=== PATIENT | male | born 1980 | race Caucasian/White ===

== ENCOUNTER 2022-12-04 11:51 | Day surgery (SDC) | payer BC, SELFPAY ==
[2022-12-04 11:56] VITALS: BP 141/81; PULSE 91; RESP 18; TEMP 37; O2SAT 99
--- NOTE | 2022-12-04 13:00 | DI.RAD_ITS ---
Exam(s) XR KNEE RT 3V AP,LAT,EDWIN EXAM: XR KNEE RT 3V AP,LAT,EDWIN CLINICAL HISTORY: laceration medial knee. TECHNIQUE: 2D digital imaging was performed. COMPARISON: No exams were available for comparison FINDINGS: 3 views There is no evidence of acute fracture. Small amount of increased joint fluid. No degenerative wilkes ges. No osseous lesions. Bone density normal. IMPRESSION: No acute osseous findings. Small joint effusion noted. DATA REPOSITORY: RADIATION DOSE DELIVERED:
--- NOTE | 2022-12-04 13:41 | ED.GENADUL_ITS ---
Discharge Plan Disposition Patient Disposition: Other Disposition Not Listed Other Facility: OR Condition: Stable Discharge Details Clinical Impression: Deep laceration of knee Primary Care Provider: Ana,Local ED Provider: Kell Badillo Discharge Data Discharge Date/Time-TO BE ENTERED AT DEPARTURE: 12/04/22 14:06 Medical Decision Making This 42-year-old gentleman presents with laceration to the medial aspect of right knee which is lacerated on a ski Tetanus is updated Neurovascularly intact Injected with approximately 10 cc of 2% lidocaine with epinephrine and concern for ligamentous versus tendon laceration with relatively deep wound, no obvious evidence of joint involvement Discussed with Dr. Garcia who will obtain consent and likely take patient to the OR for further assessment No laxity noted on exam Medical Records Medical records reviewed: Yes I reviewed the patient's medical records. Lab Data Lab results reviewed: Yes I reviewed the patient's lab results. HPI General Date/Time Provider Initiated Documentation: 12/04/22 12:26 . HPI Narrative: This 42-year-old gentleman presents with report of laceration while skiing today. He caught the corner of his ski on his inner knee. He denies any additional injuries. He denies any history of anticoagulation. He actually states he was able to ski [place] the [place] after the injury Related Data Home Medications Medication Instructions Recorded Confirmed hydrocodone 5 mg-acetaminophen 325 1 tab PO Q6H PRN pain #6 tabs 12/04/22 mg tablet ibuprofen 600 mg tablet 600 mg PO TID PRN pain #30 tabs 12/04/22 lisinopril 20 mg tablet 20 mg PO DAILY 12/04/22 12/04/22 pantoprazole 40 mg tablet,delayed 40 mg PO DAILY 12/04/22 12/04/22 release cephalexin 500 mg capsule 500 mg PO TID #6 caps 12/05/22 Previous Rx's Medication Instructions Recorded hydrocodone 5 mg-acetaminophen 325 1 tab PO Q6H PRN pain #6 tabs 12/04/22 mg tablet ibuprofen 600 mg tablet 600 mg PO TID PRN pain #30 tabs 12/04/22 cephalexin 500 mg capsule 500 mg PO TID #6 caps 12/05/22 Allergies Allergy/AdvReac Type Severity Reaction Status Date / Time No Known Allergies Allergy Unverified 12/04/22 11:57 General Stated Complaint: Laceration LAYA: 3 PFSH All Active Problems (Updated 12/06/22 @ 21:59 by JAIRO Benson) Deep laceration of knee (Acute) GERD (gastroesophageal reflux disease) (Chronic) Hypertension (Chronic) Social History Smoking/Tobacco Use Status: Never Smoking risk assessment performed?: Yes Drug use: Never Substance use type: does not use Do you feel safe at home: Yes Do you feel safe in your relationship?: Yes Exam Narrative Exam Narrative: No visible signs of head trauma No midline neck tenderness, no chest wall tenderness or visible signs of trauma, no tenderness to her abdomen or pelvis Const General: cooperative, comfortable and no acute distress Orientation: alert and oriented x3 HENMT Head: normal to inspection Extrem Other: Patient with laceration to medial right knee Approximately 3 inch laceration, appears to lacerate through the hamstring tendon partially, no obvious joint fluid Neurovascularly intact Course Vital Signs Vital signs: Vital Signs Temperature 37.0 C 12/04/22 11:56 Pulse 91 H 12/04/22 11:56 Respiratory Rate 18 12/04/22 11:56 Blood Pressure 141/81 H 12/04/22 11:56 Pulse Oximetry 99 12/04/22 11:56 Temperature 37.0 C 12/04/22 11:56 Temperature Source Temporal Artery Scan 12/04/22 11:56 Pulse 91 H 12/04/22 11:56 Respiratory Rate 18 12/04/22 11:56 Respiratory Effort Non-Labored 12/04/22 13:11 Blood Pressure 141/81 H 12/04/22 11:56 Pulse Oximetry 99 12/04/22 11:56 Oxygen Delivery Method Room Air 12/04/22 11:56 Oxygen Flow Rate 0 12/04/22 11:56
--- NOTE | 2022-12-04 13:49 | DI.VRAD_ITS ---
PROCEDURE INFORMATION: Exam: XR Right Knee Exam date and time: 12/04/2022 1:32 PM Age: 42 years old Clinical indication: Injury or trauma; Other: Laceration medial knee; Patella or knee; Right; Foreign body involvement not specified TECHNIQUE: Imaging protocol: Radiologic exam of the Right knee. Views: 3 views. COMPARISON: No relevant prior studies available. FINDINGS: Bones/joints: No acute fracture or dislocation. Trace joint effusion. Soft tissues: Linear soft tissue gas along the medial aspect of the knee and proximal tibia consistent with history of laceration. No radiopaque foreign body. IMPRESSION: No acute osseous abnormality or radiopaque foreign body identified. Dictated and Authenticated by: Michael Strickland MD. Ordering:SILAS Castorena MD
--- NOTE | 2022-12-04 14:10 | W.ANESPRE ---
General Info Date of Service Date Performed: 12/04/22 Height: 5 ft 5 in Weight: 90 kg Body Mass Index (BMI): 33.0 Meds Allergies and Home Medications Allergies Allergy/AdvReac Type Severity Reaction Status Date / Time No Known Allergies Allergy Unverified 12/04/22 11:57 Home Medication Medication Instructions Recorded lisinopril 20 mg tablet 20 mg PO DAILY 12/04/22 pantoprazole 40 mg tablet,delayed 40 mg PO DAILY 12/04/22 release PFSH Tobacco Smoking/Tobacco Use Status: Never Substance Use Substance use: Never Substance use type: does not use Vital Signs and Lab Results Vital Signs Most Recent Vital Signs in EMR: Most Recent Vital Signs Temp Pulse Resp BP Pulse Ox 37.0 C 91 H 18 141/81 H 99 12/04/22 11:56 12/04/22 11:56 12/04/22 11:56 12/04/22 11:56 12/04/22 11:56 Lab Results Blood Type / Crossmatch: No Data to Display Complete Blood Count: No Data to Display Complete Metabolic Panel: No Data to Display Liver Function Panel: No Data to Display Coagulation Panel: No Data to Display Cardiac Panel: No Data to Display Arterial Blood Gas: No Data to Display Venous Blood Gas: No Data to Display Pancreas Panel: No Data to Display Thyroid Panel: No Data to Display Infectious Disease: No Data to Display Blood Cultures: No Data to Display Toxicology Panel: No Data to Display Anesthesia Assessment and Plan Anesthesia History Personal History: No History of Anesthesia Complications Family History: No Family History of Anesthesia Complications Exercise Tolerance Exercise Tolerance: Metabolic Equivalents>4 Cardiac & Pulmonary Exam Cardiac Exam: Normal S1/S2 Heart Sounds Pulmonary Exam: Clear Bilateral Breath Sounds Implantable Cardiac Device Does patient have a Pacemaker or an ICD?: No Airway Exam Known Difficult Airway: No Mallampati Class: 2 Mouth Opening: Narrow (< 3cm) Thyromental Distance: Greater than 3 cm Neck Range of Motion: Full ROM Neck Circumference: Thick Teeth Condition: Normal Dentition ASA Classification ASA Score: ASA 2 Emergency Case?: Yes NPO Status NPO Status: NPO Clear Liquids>2 hours and NPO Small Non-Fatty Meal >6 hours Anesthesia Plan Resuscitation Status: Full Code Anesthesia Technique: General Anesthesia Airway Planned: Natural Airway Monitors Used: Standard Monitors Preoperative Comments:: 42 yo male to OR for knee wash out. Sig PMHx: HTN (lisinopril), GERD (pantoprazole - well controlled). 0630 breakfast, hungry now. Plan: prop/ketamine, no airway
[2022-12-04 14:23] VITALS: BMI 33.0
[2022-12-04 14:29] LABS: Source Nasal/Nares
[2022-12-04 14:34] VITALS: BP 129/86; PULSE 87; RESP 16; TEMP 37.5; O2SAT 96
--- NOTE | 2022-12-04 14:50 | W.ORTHOCONSU ---
Date of service: 12/04/22 Time of Service: 14:30 History of Present Illness History of Present Illness Chief Complaint: Right Knee Laceration Narrative: Deon is a 42-year-old who is seen today. He is unsure what happened but he fell and his ski cut the medial aspect of his right knee. He had an notable defect of his ski pants as well as some bleeding. He is able to ski down and then had a visual laceration on inspection and present to the emergency department. He denies any instability. He denies pain or numbness down his leg. He denies previous injury to the right leg or knee. He has no other past medical history suffer GERD and hypertension. His last meal was at 7 AM. He denies chest pain or shortness of breath. No recent COVID-19 infection or other sicknesses. Consults Consult date: 12/04/22 Requesting physician: Kell Badillo Consult Reason Complex laceration of right knee with tendon involvement Assessment and Plan Assessment and plan (1) Laceration of right knee with tendon involvement: Status: Acute Assessment and plan: Deon is a 42-year-old healthy individual who was skiing today and suffered a laceration to the right medial aspect of his knee from the ski edge. There is obvious tendon involvement, likely to be medial retinaculum with hamstring or superficial MCL involvement. The deep MCL deeper structures appear to be intact given his inherent stability of the knee. However, given the deep involvement of these tissues I do recommended operative exploration with irrigation debridement and tendon and ligament repair as indicated. He likely has some involvement of the saphenous nerve and geniculate nerves which may cause some numbness. Initial irrigation been performed the emergency department. I discussed treatment options with him. Given the deep involvement he does agree to proceed to the operating room. I reviewed the risk of the procedure to include bleeding, infection, pain, stiffness, damage nerves and vessels, damage to muscle tendons, retear, need for repeat procedures, blood clot, instability. Despite these risk, he elects to proceed. Review of Systems All systems reviewed & are unremarkable except as noted in HPI and below PFSH All Active Problems (Updated 12/04/22 @ 14:53 by Ben Garcia MD) Laceration of right knee with tendon involvement (Acute) GERD (gastroesophageal reflux disease) (Chronic) Hypertension (Chronic) Social History Smoking/Tobacco Use Status: Never Smoking risk assessment performed?: Yes Drug use: Never Substance use type: does not use Do you feel safe at home: Yes Do you feel safe in your relationship?: Yes Exam Narrative Exam Narrative: Deon is sitting in the hospital stretcher. No acute distress. Alert and x3. Head is normocephalic and atraumatic. Evaluation the right leg shows a transverse incision running from slightly anterior and proximal to posterior and distal. It transects the deep tissue with exposed tendon at the base. There is no extravasation of fluid to suggest that the joint is involved. The knee does have a firm endpoint to valgus stress although with some pain. Sensation intact light touch over the deep and superficial peroneal nerve and tibial nerve. Palpable DP PT pulse. Resp Effort & Inspection: normal respiratory effort and able to speak in complete sentences Auscultation: clear to auscultation bilaterally Cardio Rate: regular rate Rhythm: regular rhythm Results Last Vital Signs Temp 37.5 C 12/04/22 14:34 Pulse 87 12/04/22 14:34 Resp 16 12/04/22 14:34 BP 129/86 12/04/22 14:34 Pulse Ox 96 12/04/22 14:34 Labs Labs: Laboratory Results - last 24 hr 12/04/22 14:15 COVID-19 Source Nasal/Nares Imaging Imaging Studies: X-ray of the right knee shows some gas tracking of the medial aspect of the knee and corresponds to the known laceration. Otherwise no significant issues with the right knee. No suspicious lesions. No sign of fracture.
[2022-12-04] MEDS: Lactated Ringers 1,000 ML 30 ML IV (14:56)
[2022-12-04] MEDS: ceFAZolin 2 GM/50 ML BAG IVPB (15:00)
[2022-12-04 15:01] LABS: COVID-19 PCR Negative (Negative)
--- NOTE | 2022-12-04 15:55 | DSE_ITS ---
Date of service: 12/04/22 Time of Service: 16:02 DS: Diagnosis Discharge Diagnosis (1) Laceration of right knee with tendon involvement: Status: Acute Discharge Plan Disposition Patient Disposition: Home Condition: Good Discharge Details Reason For Visit: Right Knee Laceration with Tendon Involement Admit Date/Time: 12/04/22 15:57 Admit Provider: Ben Garcia Attending Provider: Ben Garcia [facility] Course: Deon was taken from the emergency department to the operating room for evaluation, irrigation and debridement of the complex right knee laceration along with retinacular closure and partial laceration of the superficial MCL repair. He was admitted to the medical surgical floor for recovery and shortly thereafter deemed safe for discharge to home. He had good pain control. He was voiding spontaneously. Home Meds and New Rx's Prescriptions: New hydrocodone-acetaminophen 5-325 mg tablet 1 tab PO Q6H PRN (Reason: pain) Qty: 6 0RF ibuprofen 600 mg tablet 600 mg PO TID PRN (Reason: pain) Qty: 30 3RF cephalexin 500 mg capsule 500 mg PO TID Qty: 6 0RF Continued lisinopril 20 mg Tablet 20 mg PO DAILY pantoprazole 40 mg Tablet,Delayed Release (Dr/Ec) 40 mg PO DAILY Discharge Instructions Additional Instructions: Knee Discharge Instructions Activity: You have no formal restrictions. You should be gentle to the knee for the next week, avoiding any strenuous activity especially any uneven ground or cutting/shifting movements. Range of motion is encouraged as well as quadriceps activation. You should elevate as much as you can for the next 3-4 days when swelling will be the worst. You may choose to purchase a knee sleeve or continue to wrap with an MARCEL wrap to minimize some of the swelling. Dressing: Remove the Marcel wrap by 2 days after your surgery. Keep the surgical dressing (underneath the MARCEL wrap) in place for at least one week. After the first week it may be removed and left uncovered. The wound and dressing may get wet after 2 days but avoid soaking the dressing or otherwise it will need to be changed. Many people prefer covering the dressing with cling wrap (saran wrap) to minimize it from getting soaked. If it gets wet, just pat dry. If it starts to peel off then it will need to be changed with some gauze or a few large bandaids. Medications: - You should take Tylenol (500mg every 6 hours as needed) and an anti- inflammatory Ibuprofen (600mg every 8 hours as needed) as your primary pain control medications. - You have been prescribed a stronger pain medication Hydrocodone for breakthrough pain, take as needed as prescribed. - You should continue your stomach acid reduction agent Pantoprozole to help reduce stomach acid and reflux. - You have been prescribed an antibiotic, Cephalexin, to take three times a day for 48 hours after the laceration. This is to prevent any infection. Follow-up: 2 weeks. You may email Dr. Garcia with an update after the first week to determine if any further followup will be required - [email or web address]. If you have any acute concerns or questions, please do not hesitate to contact the office at [phone]. You may contact Dr. Garcia with any questions after hours through the hospital at [phone] or on his cell phone at [phone]. Referrals: Ben Garcia MD [ [facility] STAFF PHYSICIAN] - Activity:: Activity as Tolerated Equipment/Supplies:: No Equipment Needed Diet:: As Tolerated Discharge Orders Discharge Orders: Discharge Order (Routine); Ordered 12/04/22 Ordered By: Ben Garcia DS: Summary Time Spent with Patient providing and/or coordinating discharge services: Less than 30 minutes Status at Discharge Functional status at discharge: independent ambulation Overall status at discharge: patient is progressing back to baseline Mental Status: mental status grossly normal Speech and Movement: speech and movement normal Mood: congruent mood Affect: normal affect Exam Psych Mental Status: mental status grossly normal Speech and Movement: speech and movement normal Mood: congruent mood Affect: normal affect DS: Data Vitals/I&O Vitals and I&O: Vital Signs Temperature 37.5 C 12/04/22 14:34 Temperature Source Oral 12/04/22 14:34 Pulse 87 12/04/22 14:34 Respiratory Rate 16 12/04/22 14:34 Respiratory Effort Non-Labored 12/04/22 13:11 Blood Pressure 129/86 12/04/22 14:34 Pulse Oximetry 96 12/04/22 14:34 Oxygen Delivery Method Room Air 12/04/22 14:34 Oxygen Flow Rate 0 12/04/22 14:34 Intake & Output 12/03/22 12/04/22 12/04/22 23:59 11:59 23:59 Intake Total 50 / 50 Balance 50 / 50 Weight 90 kg Intake: IV 50 / 50 Data Completed and Pending Labs on day of discharge: Labs from last 24 hours 12/04/22 14:15 COVID-19 Source Nasal/Nares SARS-CoV-2 (PCR) Negative PFSH All Active Problems Laceration of right knee with tendon involvement (Acute) GERD (gastroesophageal reflux disease) (Chronic) Hypertension (Chronic) Social History Smoking/Tobacco Use Status: Never Smoking risk assessment performed?: Yes Drug use: Never Substance use type: does not use Do you feel safe at home: Yes Do you feel safe in your relationship?: Yes Time Spent with Patient Time Spent with Patient: <45 minutes Time was spent: preparing to see the patient(eg.review tests) and counseling the patient
--- NOTE | 2022-12-04 16:01 | W.ANESPOSTOP ---
Postoperative Evaluation Date, Time and Location Date Performed: 12/04/22 Time Performed: 16:01 Patient Location: Med/Surg Vital Signs Most Recent Imported Vital Signs: Most Recent Vital Signs Temp Pulse Resp BP Pulse Ox 37.5 C 87 16 129/86 96 12/04/22 14:34 12/04/22 14:34 12/04/22 14:34 12/04/22 14:34 12/04/22 14:34 Most Recent Manually Entered Vital Signs: Adult Blood Pressure: 112/73 Heart Rate: 101 Respirations: 22 Oxygen Saturation (%): 98 Temperature (C): 36.1 C Pain Score (0-10 Scale): 4 Assessment Mental Status: Awake (Alert & Oriented to Patient Baseline) Airway and Respiratory Function: Patent airway with normal (patient baseline) respiratory exam Cardiovascular Function: Hemodynamically Stable Hydration Status: Adequately Hydrated Nausea & Vomiting: No Nausea or Vomiting Pain: Pain is tolerable per patient Peripheral Nerve Block: Patient did not receive a nerve block
[2022-12-04 16:02] VITALS: BP 112/73; BP 121/76; PULSE 101; PULSE 85; RESP 16; RESP 22; TEMP 36.8; TEMPC 36.1; O2SAT 97; O2SAT 98
--- NOTE | 2022-12-04 16:10 | W.PM.OP ---
Date of service: 12/04/22 Time of Service: 15:50 Operative Note Operative Note DATE OF PROCEDURE: 12/04/22 PRE-OP DIAGNOSIS: Right Knee Laceration involving Tendon POST-OP DIAGNOSIS: same (Right Knee Laceration with Retinacular, Bone, Ligament Involvement) PROCEDURE: Right Knee Irrigation and Debridement (subcutaneous, deep, and bone) with repair of partial superficial MCL laceration and retinacular laceration SURGEON: Ben Garcia ANESTHESIA TYPE: General:No Airway Refer to Anesthesia Record ESTIMATED BLOOD LOSS: 5 PATHOLOGY: none sent TOURNIQUET TIME: 0 COMPLICATIONS: None Patient was transported to: floor Patient's condition: stable Indications: Deon is a 42-year-old who was skiing today. He lost control and had one of his skis cut the inside of his right knee. This went through his ski pants and injured the medial knee. There is noted tenderness involvement in the emergency department therefore I recommend we proceed to the operating room for open irrigation debridement, exploration of the wound, and repair of necessary structures. I reviewed the risk of this procedure to include bleeding, infection, retear rerupture structures, damage nerves and vessels, pain, stiffness, blood clot. Despite these risk, he elects to proceed. Findings: There was a transverse type laceration of the medial aspect of the knee. There was obvious retinacular involvement. The laceration went down to the proximal tibia just distal to the joint line and the meniscus. The retinaculum was involved all the way to the anterior margin the superficial MCL with only a very small portion of the superficial MCL involved. The joint was challenged with 120 cc of normal saline without. Structures were repaired and the skin was closed. Procedure Description: Deon was seen in the emergency department. His history physical was updated and the consent was reviewed and signed. He was taken back to the operating room placed in supine position. All bony problems were well-padded. Prophylactic antibiotics in the form of cefazolin were administered. The right leg was prepped with Betadine and draped in a standard fashion. A timeout was performed for safe surgery. The laceration first was irrigated with 1 L of normal saline. There was no gross contamination. Any fat or skin which had a slightly necrotic appearance was removed, excised sharply. The deeper tissues were then slightly enlarged for better deeper visualization. This showed the retinaculum of the anteromedial knee to be incised just medial to the patellar tendon around to the mid coronal plane of the knee. Deeper investigation showed that this laceration went down to bone. There was involvement of some synovium and down to the level of the proximal tibia, just distal to the joint line, proximal 1 cm. This also extends all the way to the anterior border of the superficial MCL. There was some partial laceration of the anterior border the superficial MCL, involving only 1 to 2 mm at most. With this area now fully exposed I then performed a joint challenge. I injected 120 cc of normal saline into the knee. There was no extravasation of saline from this area. The majority of the saline was able to be removed. I then repeated irrigation of the wound with another 2 L of normal saline. The superficial MCL tearing was reapproximated with a 0 Vicryl. The retinacula laceration was repaired with a #1 Vicryl. Deep tissues were reapproximated with 3-0 Vicryl. Skin was closed with a running subcuticular 3-0 Monocryl reinforced with skin glue. A Mepilex silver dressing was applied followed by an Marcel wrap. At the end the case all counts were correct. He was transferred back to the medical surgical floor in stable condition.
[2022-12-04 16:15] VITALS: BP 123/84; PULSE 81; RESP 18; TEMP 36.5; O2SAT 98
[2022-12-04] MEDS: Ketorolac 15 MG/ML VIAL IVP (16:26)
[2022-12-04] MEDS: HYDROcodone 5/Acetaminophen 325 TAB PO (16:27)
[2022-12-04] MEDS: Normal Saline Flush 10 ML SYR (16:34)
[2022-12-04 16:37] VITALS: BP 111/77; PULSE 81; RESP 18; TEMP 36.6; O2SAT 98
== END 2022-12-04 17:50 | disposition home or self-care (01) ==
LOC: ER 12:15 → SUR 14:49 → MS 16:01 → ER 16:17 → MS 16:17 → SUR 12-05 12:41 → ER 12-05 12:41 → MS 12-05 12:45 → SUR 12-05 12:46
PROVIDERS: Emergency Provider Physician Assistant; Visit Provider Student in an Organized Health Care Education/Training Program
PROC: 0MQN0ZZ Repair Right Knee Bursa and Ligament, Open Approach (ICD-10-PCS; CPT 27405; principal; 2022-12-04 14:20)
DX: S83.411A Sprain of medial collateral ligament of right knee, initial encounter (principal); S81.011A Laceration without foreign body, right knee, initial encounter; K21.9 Gastro-esophageal reflux disease without esophagitis; I10 Essential (primary) hypertension; Z20.822 Contact with and (suspected) exposure to COVID-19; W26.8XXA Contact with other sharp object(s), not elsewhere classified, initial encounter; Y93.23 Activity, snow (alpine) (downhill) skiing, snowboarding, sledding, tobogganing and snow tubing
CPT/HCPCS: 27405; 27380; 73562; 87635; 90471; 96365; 99285; G0378; J0690; J1100; J1885; J2250; J2405; J2704